=== PATIENT | female | born 1995 | race Caucasian/White ===

== ENCOUNTER 2017-04-03 14:28 | Emergency (ER) | payer MEDICAID ==
[2015-12-21 11:36] VITALS: Ht 154.9 cm; Wt 54.4 kg
[~2017-04-03] VITALS: Ht 154.9 cm; Wt 54.4 kg
[2017-04-03 14:28] VITALS: BP 137/87; PULSE 103; RESP 16; TEMP 97.5; O2SAT 99
[~2017-04-03 14:28] MED LIST: HUMALOG; INSU100V9; NOVOLOG
--- NOTE | 2017-04-03 14:28 | NUR ---
PLACED IN BED 1. BIB SQ 66
--- NOTE | 2017-04-03 14:33 | NUR ---
DR QUIÑONES AT BEDSIDE EVALUATING PT.
[2017-04-03 15:46] VITALS: BP 137/87; PULSE 103; RESP 16; TEMP 97.5; O2SAT 99
== END 2017-04-03 15:44 | disposition home or self-care (01) ==
LOC: SED 14:28
DX: E11.649 Type 2 diabetes mellitus with hypoglycemia without coma (principal); Z96.41 Presence of insulin pump (external) (internal)
CPT/HCPCS: 99283

== ENCOUNTER 2017-12-08 07:00 | Emergency (ER) | payer MEDICAID ==
[~2017-12-08] VITALS: Ht 165.1 cm; Wt 54.4 kg
[2017-12-08 07:00] VITALS: BP_SYST 135
[2017-12-08] MEDS ORDERED: NACL 0.9% 1,000 ML IV ONE (07:03)
[2017-12-08] MEDS ORDERED: DEXTROSE 50% JECT 50 ML DISP.SYRIN IVP ONE (07:15)
[2017-12-08] MEDS ORDERED: ACETAMINOPHEN 500 MG TABLET PO ONE (07:15)
[2017-12-08 07:19] LABS: BASOPHILS # (AUTO) 0.1 K/uL (0.0-0.2); BASOPHILS % (AUTO) 0.6 % (0.0-2.0); EOSINOPHILS # (AUTO) 0.2 K/uL (0.0-0.4); EOSINOPHILS % (AUTO) 1.7 % (0.0-4.0); HEMATOCRIT 42.1 % (36-48); HEMOGLOBIN 14.6 g/dL (12.0-16.0); LYMPHOCYTES # (AUTO) 2.8 K/uL (1.0-5.5); LYMPHOCYTES % (AUTO) 30.3 % (20.5-51.5); MEAN CORPUSCULAR HEMOGLOBIN 29 pg (27-31); MEAN CORPUSCULAR HGB CONC 35 % (32-36); MEAN CORPUSCULAR VOLUME 85 fL (79.0-98.0); MONOCYTES # (AUTO) 0.6 K/uL (0.0-1.0); MONOCYTES % (AUTO) 6.2 % (1.7-9.3); NEUTROPHILS # (AUTO) 5.4 K/uL (1.8-7.7); NEUTROPHILS % (AUTO) 61.2 % (40.0-70.0); PLATELET COUNT (AUTO) 408 K/uL (130-430); RED BLOOD CELL COUNT(AUTO) 4.96 MIL/uL (4.2-6.2); RED CELL DISTRIBUTION WIDTH 15.4 % (9.0-15.0); WHITE BLOOD COUNT (AUTO) 9.1 K/uL (4.5-11.0)
[2017-12-08 07:33] LABS: CALCIUM 8.8 mg/dL (8.4-11.0); CREATININE 0.99 mg/dL (0.55-1.30); POTASSIUM 3.3 mmol/L (3.5-5.1)
[2017-12-08 07:37] LABS: PROTHROMBIN TIME 10.2 SECS (9.5-12.5)
[2017-12-08 07:44] LABS: ALBUMIN 4.1 g/dL (3.4-4.8); TOTAL BILIRUBIN 0.5 mg/dL (0.0-1.0)
[2017-12-08 07:50] LABS: BILIRUBIN,URINE NEGATIVE (NEGATIVE); CLARITY/URINE HAZY (CLEAR); COLOR,URINE YELLOW (YELLOW); GLUCOSE,URINE NEGATIVE (NEGATIVE); KETONES,URINE NEGATIVE (NEGATIVE); LEUKOCYTE ESTERASE ,URINE 1+ (NEGATIVE); NITRITE, URINE NEGATIVE (NEGATIVE); PH,URINE 5.5 (5.0-8.0); PROTEIN URINE TRACE (NEGATIVE); UROBILINOGEN,URINE 0.2 (0.2-1.0)
[2017-12-08 08:01] LABS: BLOOD, URINE TRACE (NEGATIVE)
[2017-12-08 08:08] LABS: BACTERIA,URINE FEW /HPF (None Seen); MUCUS,URINE 2+ /LPF (None Seen)
[2017-12-08] MEDS ORDERED: HYDROcodone/ACETAMIN 5-325 MG TAB (NORCO/ VICODIN) PO ONE (09:30)
[2017-12-08 11:15] VITALS: BP_SYST 111
== END 2017-12-08 11:15 | disposition home or self-care (01) ==
LOC: SED 07:00
DX: E11.649 Type 2 diabetes mellitus with hypoglycemia without coma (principal)
CPT/HCPCS: 36415; 70450; 80053; 81000; 82150; 83690; 85025; 85610; 85730; 87086; 96361; 96374; 99285; J7030